=== PATIENT | female | born 2000 | race Hispanic/Latino ===

== ENCOUNTER 2022-08-13 22:39 | Emergency (ER) | payer BC | END 2022-08-13 23:49 | disposition home or self-care (01) | LOC: CSHERS 22:39 | DX: S63.501A Unspecified sprain of right wrist, initial encounter (principal); S06.0X0A Concussion without loss of consciousness, initial encounter; W19.XXXA Unspecified fall, initial encounter | CPT/HCPCS: 99283 ==